=== PATIENT | female | born 1990 | race Caucasian/White ===

== ENCOUNTER 2020-09-11 10:45 | Outpatient (REF) | payer MEDICAID, SELFPAY | END 2020-09-11 10:46 | disposition home or self-care (01) | LOC: HO.LAB 10:45 | PROVIDERS: PCP Internal Medicine; Visit Provider Internal Medicine | DX: Z20.828 Contact with and (suspected) exposure to other viral communicable diseases (principal) | CPT/HCPCS: C9803; U0003 ==

== ENCOUNTER 2025-08-04 10:50 | Outpatient (REF) | payer MEDICAID, SELFPAY ==
--- OUTSIDE RECORDS SUMMARY | 2025-08-04 09:45 | XMS_ITS | Encounter Summary ---
Author Organization [employer] Address [address] [facility] [address], [place] [address] Care Team Providers Care Prosthetics Technician Name Role Phone Janie Zepeda NP Primary Care Provider [phone] Reason for Referral * Consultation (Routine) - Pending Review Specialty Diagnoses / Procedures Referred By Onel marcial Referred To Contact Allergy Diagnoses Healthcare maintenance Janie Zepeda NP [address] [place] [address] Phone: tel: fax: Referral ID Status Reason Start Date Expiration Date Visits Requested Visits Authorized [id number] Pending Review Specialty Services Required 08/04/2025 08/04/2026 1 1 * Consultation (Routine) - Authorized Specialty Diagnoses / Procedures Referred By Onel marcial Referred To Contact Dental Historical Manuscripts Curator / Dentistry Diagnoses Healthcare maintenance Janie Zepeda NP [address] [place] [address] Phone: tel: fax: Referral ID Status Reason Start Date Expiration Date Visits Requested Visits Authorized [id number] Authorized Consult and Treat 08/04/2025 08/04/2026 1 1 * Consultation (Routine) - Pending Review Specialty Diagnoses / Procedures Referred By Onel marcial Referred To Contact Obstetrics and Gynecology Diagnoses Healthcare maintenance Janie Zepeda NP [address] [place] [address] Phone: tel: fax: Referral ID Status Reason Start Date Expiration Date Visits Requested Visits Authorized [id number] Pending Review Specialty Services Required 08/04/2025 08/04/2026 1 1 * Consultation (Routine) - Authorized Specialty Diagnoses / Procedures Referred By Onel marcial Referred To Contact Behavioral Health Diagnoses Healthcare maintenance Procedures Referral to Behavioral Health Janie Zepeda NP [address] [place] [address] Phone: tel: fax: Referral ID Status Reason Start Date Expiration Date Visits Requested Visits Authorized [id number] Authorized Specialty Services Required 08/04/2025 08/04/2026 1 1 Encounter Details Date Type Department Care Team (Latest Contact Info) Description 08/04/2025 9:45 AM EST Office Visit [facility] [address] [place] [address] [phone] Janie Zepeda NP [address] [place], [place] [phone] Recurrent major depressive episodes, mild (CMS/HCC) (Primary Dx); Healthcare maintenance; Hx of human papillomavirus infection; Allergic rhinitis due to animal hair and dander; Dietary counseling; Exercise counseling Social History Tobacco Use Types Packs/Day Years Used Date Smoking Tobacco: Never Passive Smoke Exposure: Never Smokeless Tobacco: Never Tobacco Cessation:Counseling Given: Not Answered Depression Answer Date Recorded Patient Health Questionnaire-9 Score 11 08/04/2025 Patient Health Questionnaire-9 Score 11 08/04/2025 Last PHQ-9: Questionnaire Data Not on file 1 10/04/2024 Housing Stability Answer Date Recorded What is your housing situation today? I do not have housing (Staying with others, in a hotel, in a longterm, living outside on the street, on a beach, in a car, or in a park 08/04/[address] you li ve. Do you have problems with any of the following? None of the above 08/04/2025 Food Insecurity Answer Date Recorded Within the past 12 months, y ou worried that your food would run out before you got money to buy more: Never True 07/28/2025 Within the past 12 months,th e food you bought just didn't last and you didn't have enough money to get more: Never True Transportation Answer Date Recorded In the past 12 months, has l ack of transportation kept you from medical appts, meetings, work or from getting things needed for daily living? No 07/28/2025 Utilities Answer Date Recorded In the past 12 months, has t he electric, gas, oil or water company threatened to shut off services in your home? No 07/28/2025 Depression Answer Date Recorded Patient Health Questionnaire-2 Score 4 08/04/2025 Internet Access Answer Date Recorded Internet Access Q1 Yes 07/28/2025 Internet Access Q2 Not on file 07/28/2025 Comments Unknown Sex and Gender Information Value Date Recorded Sex Assigned at Female 08/01/2022 10:28 AM EDT Legal Sex Female 10:28 AM EDT Gender Identity Female 08/01/2022 10:28 AM EDT Sexual Orientation Straight 08/01/2022 10 :28 AM EDT documented as of this encounter Last Filed Vital Signs Vital Sign Reading Time Taken Comments Blood Pressure 142/82 08/04/2025 9:51 AM EST Pulse 110 08/04/2025 9:51 AM EST Temperature 36.7 C (98.1 F) 08/04/2025 9:51 AM EST Respiratory Rate 20 08/04/2025 9:51 AM EST Oxygen Saturation 99% 08/04/2025 9:51 AM EST Inhaled Oxygen Concentration - - Weight 83.9 kg (185 lb) 08/04/2025 9:51 AM EST Height 166.1 cm (5' 5.41 ) 08/04/2025 9:51 AM ES T Body Mass Index 30.4 08/04/2025 9:51 AM EST documented in this encounter Functional Status * Over the past 2 weeks, how often have you been bothered by any of the following problems? Question Answer Date of Assessment Author Patient Health Questionnaire-2 Score 4 08/04/2025 10:39 AM EST Rozina Dumont MA * Little interest or pleasure in doing things Answer Date of Assessment Author More than half the days 08/04/2025 10:39 AM Rozina Lucero MA * Feeling down, depressed, or hopeless Answer Date of Assessment Author More than half the days 08/04/2025 10:39 AM Rozina Lucero MA * Trouble falling or staying asleep, or sleeping too much Answer Date of Assessment Author Several days 08/04/2025 10:39 AM Rozina Jc Ma, [place] * Feeling tired or having little energy Answer Date of Assessment Author More than half the days 08/04/2025 10:39 AM Rozina Lucero MA * Poor appetite or overeating Answer Date of Assessment Author More than half the days 08/04/2025 10:39 AM Rozina Lucero MA * Feeling bad about yourself - or that you are a failure or have let yourself or your family down Answer Date of Assessment Author More than half the days 08/04/2025 10:39 AM Rozina Lucero MA * Trouble concentrating on things, such as reading the newspaper or watching television Answer Date of Assessment Author Not at all 08/04/2025 10:39 AM Rozina Jc Ma, [place] * Moving or speaking so slowly that other people could have noticed? Or the opposite - being so fidgety or restless that you have been moving around a lot more than usual. Answer Date of Assessment Author Not at all 08/04/2025 10:39 AM Rozina Jc Ma, [place] * Thoughts that you would be better off or hurting yourself in some way Answer Date of Assessment Author Not at all 08/04/2025 10:39 AM Rozina Jc Ma, [place] * Patient Health Questionnaire-9 Score Answer Date of Assessment Author 11 08/04/2025 10:39 AM Rozina Jc Ma, [place] * How difficult have these problems made it for you to do your work, take care of things at home, or get along with other people? Answer Date of Assessment Author Somewhat difficult 08/04/2025 10:39 AM Rozina Lucero MA * Over the last 2 weeks, how often have you been bothered by any of the following problems? Question Answer Date of Assessment Author Feeling nervous, anxious, or on edge 3 08/04/2025 10:39 AM Rozina Lucero MA Not being able to stop or control worrying 2 08/04/2025 10:39 AM Rozina Lucero MA Worrying too much about different things 3 08/04/2025 10:39 AM Rozina Lucero MA Trouble relaxing 2 08/04/2025 10:39 AM Rozina Lucero MA Being so restless that it is hard to sit still 2 08/04/2025 10:39 AM Rozina Lucero MA Becoming easily annoyed or irritable 2 08/04/2025 10:39 AM Rozina Lucero MA Feeling afraid as if something awful might happen 3 08/04/2025 10:39 AM Rozina Hoffman MA LEONIE-7 Total Score 17 08/04/2025 10:39 AM Rozina Lucero MA documented as of this encounter Miscellaneous Notes * Assessment & Plan Note - Janie Zepeda NP - 08/04/2025 9:45 AM ESTAssociated Problem(s): Recurrent major depressive episodes, mild (CMS/HCC) * Assessment & Plan Note - Janie Zepeda NP - 08/04/2025 9:45 AM ESTAssociated Problem(s): Healthcare maintenance Orders: Referral to Behavioral Health; Future Referral to Obstetrics / Gynecology; Future HIV-1/2 Antigen and Antibodies, Fourth Generation, with Reflexes; Future Hepatitis C Antibody with Reflex to HCV, RNA, Quantitative, Real-Time PCR; Future RPR (Monitor) with Reflex to Titer; Future Lipid Panel, Standard; Future Comprehensive Metabolic Panel; Future TSH; Future Referral to [facility]; Future Referral to Allergy; Future * Assessment & Plan Note - Janie Zepeda NP - 08/04/2025 9:45 AM ESTAssociated Problem(s): Hx of human papillomavirus infection documented in this encounter Plan of Treatment Scheduled Orders Name Type Priority Associated Diagnoses Orde r Schedule HIV-1/2 Antigen and Antibodies, Fourth Generation, with Reflexes Lab Routine Healthcare maintenance Expected: 08/04/2025 (Approximate), Expires: 08/04/2026 Hepatitis C Antibody with Reflex to HCV, RNA, Quantitative, Real-Time PCR Lab Routine Healthcare maintenance Expected: 08/04/2025, Expires: 08/04/2026 RPR (Monitor) with Reflex to Titer Lab Routine Healthcare maintenance Expected: 08/04/2025, Expires: 08/04/2026 Lipid Panel, Standard Lab Routine Healthcare maintenance Expected: 08/04/2025 (Approximate), Expires: 08/04/2026 Comprehensive Metabolic Panel Lab Routine Healthcare maintenance Expected: 08/04/2025 (Approximate), Expires: 08/04/2026 TSH Lab Routine Healthcare maintenance Expected: 08/04/2025 (Approximate), Expires: 08/04/2026 Scheduled Referrals Name Type Priority Associated Diagnoses Orde r Schedule Referral to Obstetrics / Gynecology Outpatient Referral Routine Healthcare maintenance Expected: 08/04/2025 (Approximate), Expires: 08/04/2026 Referral to [facility] Dental Adult Outpatient Referral Routine Healthcare maintenance Expected: 08/04/2025 (Approximate), Expires: 08/04/2026 Referral to Allergy Outpatient Referral Routine Healthcare maintenance Expected: 08/04/2025 (Approximate), Expires: 08/04/2026 documented as of this encounter Visit Diagnoses Diagnosis Recurrent major depressive episodes, mild (CMS/HCC)- Primary Major depressive disorder, recurrent episode, mild Healthcare maintenance Hx of human papillomavirus infection Allergic rhinitis due to animal hair and dander Allergic rhinitis due to animal (cat) (dog) hair and dander Dietary counseling Dietary surveillance and counseling Exercise counseling documented in this encounter Additional Health Concerns Assessment Noted Time PHQ-9 Depression Total Score: 11 025 10:39 AM EST documented as of this encounter Care Teams Prosthetics Technician Relationship Specialty Start Date End Date Janie Zepeda NP [address] [place] [address] PCP - General Family Medicine 08/04/25 documented as of this encounter
--- OUTSIDE RECORDS SUMMARY | 2025-08-04 13:26 | XMS_ITS | Encounter Summary ---
Author Organization [employer] Address [address] [facility] 7[address] [place] [address] Care Team Providers Care Gps Navigation Installer Name Role Phone Alem Mcgee MD Primary Care Provider + Janie Zepeda NP Primary Care Provider [phone] Encounter Details Date Type Department Care Team (Late st Contact Info) Description 02/20/2023 Abstract [facility] [address] [place], [place] [phone] Alem Mcgee MD [address] [place], [place] [phone] Social History Tobacco Use Types Packs/Day Years Used Date Smoking Tobacco: Never Assessed Comments Unknown Sex and Gender Information Value Date Recorded Sex Assigned at Female 08/01/2022 10:28 AM EDT Legal Sex Female 10:28 AM EDT Gender Identity Female 08/01/2022 10:28 AM EDT Sexual Orientation Straight 08/01/2022 10 :28 AM EDT documented as of this encounter Plan of Treatment Not on file documented as of this encounter Visit Diagnoses Not on filedocumented in this encounter Care Teams Gps Navigation Installer Relationship Specialty Start Date End Date Alem Mcgee MD [address] [place] [address] [phone] PCP - General Family Medicine 12/01/16 04/23/25 Janie Zepeda NP [address] [place] [address] [phone] PCP - General Family Medicine 08/04/25 documented as of this encounter
--- OUTSIDE RECORDS SUMMARY | 2025-08-04 13:26 | XMS_ITS | Encounter Summary ---
Author Organization [employer] Address [address] [facility] [address] 7[address] [place] [address] Care Team Providers Care Sampler Radioactive Waste Name Role Phone AlyceJanie rowley TERRIE Primary Care Provider Encounter Details Date Type Department Care Team (Latest Contact Info) Description 08/04/2025 Travel Social History Tobacco Use Types Packs/Day Years Used Date Smoking Tobacco: Never Passive Smoke Exposure: Never Smokeless Tobacco: Never Depression Answer Date Recorded Patient Health Questionnaire-9 Score 11 08/04/2025 Patient Health Questionnaire-9 Score 11 08/04/2025 Last PHQ-9: Questionnaire Data Not on file 1 10/04/2024 Housing Stability Answer Date Recorded What is your housing situation today? I do not have housing (Staying with others, in a hotel, in a jail, living outside on the street, on a [...] AM EDT documented as of this encounter Functional Status * Over the past 2 weeks, how often have you been bothered by any of the following problems? Question Answer Date of Assessment Author Patient Health Questionnaire-2 Score 4 08/04/2025 10:39 AM Rozina Brody MA * Little interest or pleasure in [...] Lucero MA documented as of this encounter Plan of Treatment Not on file documented as of this encounter Visit Diagnoses Not on filedocumented in this encounter Additional Health Concerns Assessment Noted Time PHQ-9 Depression Total Score: 11 025 10:39 AM EST documented as of this encounter Care Teams Sampler Radioactive Waste Relationship Specialty Start Date End Date Janie Zepeda NP [address] [place] [id number] PCP - General Family Medicine 08/04/25 documented as of this encounter
--- OUTSIDE RECORDS SUMMARY | 2025-08-04 13:26 | XMS_ITS | Encounter Summary ---
Author Organization [employer] Address [address] [facility] [address] 7[address] [place] [address] Care Team Providers Care Renovator Machine Operator Name Role Phone Unavailable Primary Care Provider Unavailabl e Reason for Visit * Reason Onset Date Comments Chart Prep 07/31/2025 Encounter Details Date Type Department Care Team (Late st Contact Info) Description 07/31/2025 Telephone [facility] [address] [place], [place] [phone] Janie Zepeda NP [address] [place] [address] Chart Prep Social History Tobacco Use Types Packs/Day Years Used Date Smoking Tobacco: Never Assessed Housing Stability Answer Date Recorded What is your housing situation today? I have cristobal cueto 07/28/[address] you li ve. Do you have problems with any of the following? None of the above 07/28/2025 Food Insecurity Answer Date Recorded Within the [...] off services in your home? No 07/28/2025 Internet Access Answer Date Recorded Internet Access Q1 Yes 07/28/2025 Internet Access Q2 Not on file 07/28/2025 Comments Unknown Sex and Gender Information Value Date Recorded Sex Assigned at Female 08/01/2022 10:28 AM EDT Legal Sex Female 10:28 AM EDT Gender Identity Female 08/01/2022 10:28 AM EDT Sexual Orientation Straight 08/01/2022 10 :28 AM EDT documented as of this encounter Miscellaneous Notes * Telephone Encounter - Noah Murray MA - 07/31/2025 2:52 PM EDT Chart Prep Labs: not applicable Images: not applicable Referrals: not applicable Vaccines due: Covid, Flu, Hep B, and HPV Screenings: Alcohol/Substance Use Screening Overdue care gaps: SBIRT, PHQ-9, LEONIE-7, Disability screen, and Tobacco documented in this encounter Plan of Treatment Not on file documented as of this encounter Visit Diagnoses Not on filedocumented in this encounter
--- OUTSIDE RECORDS SUMMARY | 2025-08-04 13:26 | XMS_ITS | Encounter Summary ---
Author Organization [employer] Address [address] [facility] 7t [place] [address] Care Team Providers Care Senior Operations Analyst Name Role Phone Alem Mcgee MD Primary Care Provider + Janie Zepeda NP Primary Care Provider [phone] Encounter Details Date Type Department Care Team (Latest Contact Info) Description 02/12/2021 Abstract [facility] Dental, Provider, DDS Social History Tobacco Use Types Packs/Day Years [...] on filedocumented in this encounter Care Teams Senior Operations Analyst Relationship Specialty Start Date End Date Alem Mcgee MD [address] [place] [address] PCP - General Family Medicine 12/01/16 04/23/25 Janie Zepeda NP [address] [place] [address] PCP - General Family Medicine 08/04/25 documented as of this encounter
--- OUTSIDE RECORDS SUMMARY | 2025-08-04 13:27 | XMS_ITS | Clinical Summary ---
Author Organization [employer] Address [address] [facility] 7[address] [place] [address] Care Team Providers Care Applications Trainer Name Role Phone Janie Zepeda TERRIE Primary Care Provider [phone] Allergies No known active allergies Medications escitalopram (Lexapro) 5 MG tablet Take 1 tablet (5 mg) by mouth Once per day. 30 tablet 2 5 11/02/19 26 Active fluticasone (Flonase) 50 MCG/ACT nasal spray Administer 1-2 sprays into each nostril Once per day. Shake gently. Before first use, prime pump. After use, clean tip and replace cap. 16 g 5 08/04/20 26 Active loratadine (Claritin) 10 MG tablet Take 1 tablet (10 mg) by mouth Once per day. 30 tablet 2 5 11/02/19 26 Active Active Problems Problem Noted Date Diagnosed Date Healthcare maintenance 08/04/2025 Overview (08/04/2025): Hpv detected 2018 - Assessment & Plan (08/04/2025 10:28 AM EST): Orders: Referral to Behavioral Health; Future Referral to Obstetrics / Gynecology; Future HIV-1/2 Antigen and Antibodies, Fourth Generation, with Reflexes; Future Hepatitis C Antibody with Reflex to HCV, RNA, Quantitative, Real-Time PCR; Future RPR (Monitor) with Reflex to Titer; Future Lipid Panel, Standard; Future Comprehensive Metabolic Panel; Future TSH; Future Referral to [facility] Dental Adult; Future Referral to Allergy; Future Hx of human papillomavirus infection 08/04/2025 Assessment & Plan (08/04/2025 10:28 AM EST): Viral upper respiratory tract infection 07/31/20 25 Recurrent major depressive episodes, mild 2024 Assessment & Plan (08/04/2025 10:28 AM EST): Pain of left breast 07/31/2025 Acute laryngitis 07/31/2025 Abnormal uterine bleeding 07/31/2025 Large breasts 08/10/2018 Backache 08/10/2018 Abdominal pain 02/09/2018 Chronic thoracic back pain 12/12/2016 Encounters Date Type Department Care Team Description 08/04/2025 9:45 AM EST Office Visit [facility] [address] [place] [address] Janie Zepeda NP Recurrent major depressive episodes, mild (CMS/HCC) (Primary Dx); Healthcare maintenance; Hx of human papillomavirus infection; Allergic rhinitis due to animal hair and dander; Dietary counseling; Exercise counseling 08/04/2025 Travel 07/31/2025 Telephone [facility] [address] [place] [address] Janie Zepeda NP Chart Prep 07/28/2025 Patient Outreach [facility] [address] [place] [address] Janie Zepeda NP Pre-visit Planning (SDOH negative, Tobacco screening negative. ) from Last 3 Months Immunizations Immunization Administration Dates Next Due Hep B, adult 08/23/2019,07/22/2019 MMR 07/22/2019 Tdap 08/10/2018,10/23/2015 Social History Tobacco Use Types Packs/Day Years [...] with others, in a hotel, in a senior living, living outside on the street, on a [...] Orientation Straight 08/01/2022 10 :28 AM EDT Last Filed Vital Signs Vital Sign Reading [...] Mass Index 30.4 08/04/2025 9:51 AM EST Plan of Treatment Health Maintenance Due Date Last Done Comments HIV Screening 1992 Family Planning (PISQ) 02/16/2007 HPV Vaccines (1 - 3-dose series) 02/16/2007 Hepatitis C Screening 02/16/2010 Pap Smear 02/16/2013 Hepatitis B Vaccines (3 of 3 - 19+ 3-dose series) 01/21/2020 08/23/2019, 07/22/2019 Cervical Cancer Screening 07/22/2024 HPV/Cotest 07/22/2024 07/22/2019 COVID-19 Vaccine (3 - 2024-2 6 season) 2025 03/12/2021, 02/12/2021 Influenza Vaccine (#1) 2025 Depression Monitoring 02/01/2026 08/04/2025 , 08/04/2025 Alcohol/Substance Use Screening 08/04/2026 08/04/2025 Disability Screening 08/04/2026 08/04/2025 SDOH Screening 08/04/2026 08/04/2025 Tobacco Screening 08/04/2026 08/04/2025 DTaP/Tdap/Td Vaccines (3 - T d or Tdap) 08/10/2028 08/10/2018, 10/23/2015 Zoster Vaccines (1 of 2) 02/16/2042 RSV Patients and Patients Aged 60 years or older (1 - 1-dose 75+ series) 02/16/2067 HIB Vaccines Aged Out No longer eligi ble based on patient's age to complete this topic Hepatitis A Vaccines Aged Out No long er eligible based on patient's age to complete this topic IPV Vaccines Aged Out No longer eligi ble based on patient's age to complete this topic Meningococcal B Vaccine Aged Out No l onger eligible based on patient's age to complete this topic Meningococcal Vaccine Aged Out No tanvir eliel eligible based on patient's age to complete this topic Pneumococcal Vaccine: Pediatrics (0 to 5 Years) and At-Risk Patients (6 to 49) Years Aged Out No longer eligible b ased on patient's age to complete this topic RSV under 20 months Aged Out No longe r eligible based on patient's age to complete this topic Rotavirus Vaccines Aged Out No longer eligible based on patient's age to complete this topic Procedures Procedure Name Priority Date/Time Associated Diagnosis Comments ZZZ HISTORICAL HPV E6/E7 RFLX NUBIA 16 18/45 Routine 07/22/2019 10:43 AM EDT from Last 3 Months or Most Recently Relevant to Health Maintenance Results * (ABNORMAL) HPV E6/E7 RFLX NUBIA 16 18/45 (07/22/2019 10:43 AM EDT) HPV 16 RNA NOT DETECTED NOT DETECTED [facility] HPV 18/45 RNA DETECTED(AA ) NOT DETECTED [facility] Comment: This test was performed using the APTIMA HPV 16, 18/45 genotype assay ([employer] The assay can differentiate HPV 16 from HPV 18 and/or HPV 45, but does not differentiate between HPV 18 and HPV 45. The analytical performance characteristics of this assay have been determined by [facility]. The modifications have not been cleared or approved by the FDA. This assay has been validated pursuant to the CLIA regulations and is used for clinical purposes. Test Performed by [facility], [address] [place], [place] Marcel Coats M.D., Ph.D., Director of Laboratories , CLIA [id number] HPV mRNA E6/E7 DETECTED(AA ) NOT DETECTED [facility] Comment: This test was performed using the APTIMA(R) HPV Assay ([employer] This assay detects E6/E7 viral messenger RNA (mRNA) from 14 high-risk HPV types (16,18,31,33,35,39,45,51, 52,56,58,59,66,68). For additional information please refer to: http://education.[employer]ved[employer]/faq/LZV495m2 (This link is being provided for informational/ educational purposes only.) The analytical performance characteristics of this assay have been determined by [facility] [place], [place]. The modifications have not been cleared or approved by the FDA. This assay has been validated pursuant to the CLIA regulations and is used for clinical purposes. Please note: Effective 06/13/2016, HPV testing will be performed using [employer]'s APTIMA test which targets mRNA. Detecting mRNA instead of DNA, as in older methods, offers significant improvements in specificity. ADDITIONAL TESTING Has been added. () [facility] Comment: Test Performed by [facility], [id number] [place], [place] Marcel Coats M.D., Ph.D., Director of Laboratories , CLIA [id number] 07/22/2019 10:4 3 AM EDT us Alem Mcgee MD HISTORICAL/NON ORDERABLE LABS Final Result [facility] [address] from Last 3 Months or Most Recently Relevant to Health Maintenance Insurance C3 Care Teams Applications Trainer Relationship Specialty Start Date End Date Janie Zepeda NP [address] [place] [id number] PCP - General Family Medicine 08/04/25
[2025-08-04 14:15] LABS: Alanine Aminotransferase 16 U/L (0-31); Albumin Level 4.9 g/dL (3.5-5.0); Alkaline Phosphatase 56 U/L (39-117); Anion Gap 8 (12-20); Aspartate Amino Transferase 21 U/L (5-31); Blood Urea Nitrogen 8 mg/dL (9-16); Calcium 9.7 mg/dL (8.4-10.2); Carbon Dioxide 31 mmol/L (22-29); Chloride 106 mmol/L (96-108); Cholesterol 182 mg/dL (<200); Estimated Glomerular Filt Rate > 60; HDL Cholesterol 63 mg/dL (>40); Potassium 4.7 mmol/L (3.3-5.1); Sodium 140 mmol/L (135-145); Total Protein 7.6 g/dL (6.5-8.0); Triglycerides 134 mg/dL (<150)
[2025-08-04 14:17] LABS: Thyroid Stimulating Hormone 0.54 uIU/mL (0.32-4.0)
[2025-08-05 06:57] LABS: HIV Num 1 0.06 S/CO (0.00-0.99); ~HepC Num1 0.09 S/CO (0.00-0.79); ~Hepatitis C Antibody Nonreactive (Nonreactive)
== END 2025-08-04 10:51 | disposition home or self-care (01) ==
LOC: HO.HHCL 10:50
PROVIDERS: PCP Nurse Practitioner Family; Visit Provider Nurse Practitioner Family
DX: Z00.00 Encounter for general adult medical examination without abnormal findings (principal); Z11.4 Encounter for screening for human immunodeficiency virus [HIV]; Z11.3 Encounter for screening for infections with a predominantly sexual mode of transmission; Z11.59 Encounter for screening for other viral diseases
CPT/HCPCS: 36415; 80053; 80061; 84443; 86592; 86803; 87389